=== PATIENT | female | born 1955 | race Caucasian/White ===

== ENCOUNTER 2017-09-06 15:17 | Emergency (ER) | payer OTHER ==
[~2017-09-06] VITALS: Ht 61 cm; Wt 93.4 kg
[~2017-09-06 15:17] MED LIST: BENAZEPRIL HCL40 MG PO; COREG12.5 M1 PO; COREG25 M1 PO; CYMBALTA30 M1 PO; CYMBALTA60 M1 PO; DICLOFENAC SODI75 M2 PO; HUMALOG; HYCET 7.5 MG-3473 ML PO; LEVEMIR100 UNIT/1 SC; LOVENOX40 MG/0.1 SC; PROTONIX40 M3 PO; ZOCOR20 M1 PO
--- NOTE | 2017-09-06 19:38 | ED HAND/WRIST INJURY COMPLAINT ---
History of Present Illness General Chief Complaint: Laceration Procedure Stated Complaint: LAC TO R HAND Source: patient Exam Limitations: no limitations Vital Signs & Intake/Output Vital Signs & Intake/Output Vital Signs Date Time Temp Pulse Resp B/P B/P Pulse O2 O2 Flow FiO2 Mean Ox Delivery Rate 09/06 1952 97.8 61 20 180/78 98 Room Air 09/06 1558 97.5 70 18 138/90 97 Room Air Room Air ED Intake and Output 09/07 0000 09/06 1200 Intake Total Output Total Balance Patient 206 lb Weight Weight Reported by Patient Measurement Method Allergies Coded Allergies: Iodinated Contrast- Oral and IV Dye (Intermediate, HIVES 05/06/17) latex (Intermediate, RASH 05/06/17) Uncoded Allergies: steri strips/tape (HIVES 12/17/15) Reconcile Medications Carvedilol (Coreg) 25 MG TABLET 1 TAB PO DAILY HTN (Reported) Carvedilol (Coreg) 12.5 MG TABLET 1 TAB PO QHS HTN (Reported) Duloxetine HCl (Cymbalta) 60 MG CAPSULE.DR 1 CAP PO DAILY FIBROMYALGIA ( Reported) Duloxetine Hydrochloride (Cymbalta) 30 MG CAPSULE.DR 1 CAP PO DAILY DEPRESSION (Reported) Enoxaparin Sodium (Lovenox) 40 MG/0.4 ML SYRINGE 1 SYR SC DAILY BLOOD THINNER PATIENT HAS PERSCRIPTION AT HOME Hydrocodone/Acetaminophen (Hycet 7.5 MG-325 MG/15 Ml Soln) 7.5 MG-325 MG/15 ML SOLUTION 15 ML PO Q4-6 PRN PAIN Pantoprazole Sodium (Protonix) 40 MG TABLET.DR 1 TAB PO DAILY ANTI ULCER Triage Note: TRIAGE: 62 Y/O FEMALE PRESENTS C/O 1 INCH LACERATION TO RIGHT FIFTH DIGIT TODAY FROM CUT ON GLASS TODAY. LAST TETANUS 1994. Triage Nurses Notes Reviewed? yes Occurred: just prior to arrival Duration: hour(s): (1) Timing: no prior history Injury Environment: home Severity: mild Severity Numbers: 3 Pain/Injury Location: Right: Hand. Context: laceration Method of Injury: laceration No Modifying Factors: none HPI: Patient is a 62 -year-old female presenting to the emergency department complaining of laceration to right hand prior to arrival. Pain is only mild, burning in nature. Bleeding controlled with pressure. She reports that she was washing a glass dish broke and caught her hand. Denies other injury. No numbness or tingling. Denies any nausea vomiting fevers chills chest pain or shortness of breath. Unsure of tetanus immunization. (Roselyn Lewis) Past History Travel History Traveled to [place] past 21 day No Medical History Any Pertinent Medical History? see below for history Cardiovascular: hypertension Respiratory: obstructive sleep apnea Musculoskeletal: fibromyalgia Psychiatric: depression Endocrine: diabetes History of MRSA: No History of VRE: No History of CDIFF: No Influenza Vaccine: 05/08/17 Tetanus Vaccine: 09/06/17 Surgical History Surgical History: ELVIRA BEAVER PACER Psychosocial History Who do you live with Family Services at Home None What is your primary language Yoruba Tobacco Use: Never used ETOH Use: denies use Illicit Drug Use: denies illicit drug use Family History Hx Contributory? No (Roselyn Lewis) Review of Systems Review of Systems Constitutional: Reports: no symptoms. Comments Review of systems: See HPI, All other systems negative. Constitutional, no chills fever or weight loss HEENT: No visual changes no sore throat no congestion Cardiovascular: No chest pain ,palpitation Skin, no jaundice no rashes Respiratory: No dyspnea cough sputum or hemoptysis GI: No nausea no vomiting Muscle skeletal: no back pain, no neck pain, Neurologic: No numbness no confusion Psych: No stress anxiety or depression,. Heme/endocrine: No bruising no bleeding no polyuria or polydipsia Immunology: No splenectomy or history of AIDS (Roselyn Lewis) Physical Exam Physical Exam General Appearance: well developed/nourished, no apparent distress, alert, awake , comfortable Hand Left: normal inspection, normal range of motion Hand Right: lacerations Comments: Well-developed well-nourished person in no acute distress HEENT: atraumatic, normocephalic neck:Normal inspection Cardiovascular: Radial pulses are 2+ bilaterally. Respiratory: No respiratory distress. Extremity: No edema, full range of motion of right hand without difficulty or pain. No signs of tendon injury , full range of motion. Capillary refill intact in upper extremities bilaterally. Neuro: Alert oriented x3, motor sensory normal in upper extremities bilaterally. Skin: Linear laceration partially 3 cm, subcutaneous toolbox made noting over the medial aspect of the right hand at the base of the fifth digit. No foreign bodies appreciated with inspection or palpation. Psych: Mood and affect is normal, memory and judgment is normal. (Roselyn Lewis) Progress Differential Diagnosis: laceration, abrasion, contusion. Plan of Care: Current Medications Sig/Jane Start time Last Medication Dose Stop Time Status Admin Lidocaine 20 ML ONCE ONE 09/06 1944 UNVr (Lidocaine 1%) 09/06 1945 (Roselyn Lewis) Departure Departure Time of Disposition: 1936 Disposition: HOME OR SELF CARE Condition: Stable Clinical Impression Primary Impression: Laceration Referrals: Clemente MARIEE,Michael Landeros (PCP/Family) Additional Instructions: Return in 7-10 days for suture removal. Keep clean and dry. Return sooner for any worsening symptoms or concerns. Take over the counter Motrin Tylenol as directed for any aches or pains. Departure Forms: Customer Survey General Discharge Information (Roselyn Lewis) PA/STERILIZATION TECH Co-Sign Statement Statement: ED Attending supervision documentation- [] I saw and evaluated the patient. I have also reviewed all the pertinent lab results and diagnostic results. I agree with the findings and the plan of care as documented in the PA's/STERILIZATION TECH's documentation. [x] I have reviewed the ED Record and agree with the PA's/STERILIZATION TECH's documentation. [] Additions or exceptions (if any) to the PAs/STERILIZATION TECH's note and plan are summarized below: [] (Damon MARIEE,Jerome Sebastian) Procedures Laceration/Wound Repair Laceration/Wound Repair: Wound Location: upper extremity Wound's Depth, Shape: linear, subcutaneous Wound Length (cm): 3 Wound Explored: clean, no foreign body removed, foreign body removed Irrigated w/ Saline (ccs): 150 Betadine Prep? Yes Anesthesia: 1% lidocaine Volume Anesthetic (ccs): 3 Wound Debrided: minimal Wound Repaired With: sutures Suture Size/Type: 5:0, nylon Number of Sutures: 5 Layer Closure? No Date of Last Tetanus: 09/06/17 Tetanus Status: up to date Progress: Tolerated procedure well (Roselyn Lewis)
[2017-09-06 19:53] VITALS: BP 180/78
== END 2017-09-06 20:02 ==
LOC: ERH 15:17
DX: S61.411A Laceration without foreign body of right hand, initial encounter (principal); W25.XXXA Contact with sharp glass, initial encounter; Y93.G1 Activity, food preparation and clean up; Y92.009 Unspecified place in unspecified non-institutional (private) residence as the place of occurrence of the external cause
CPT/HCPCS: 90471; 90714